=== PATIENT | male | born 1995 | race Hispanic/Latino ===

== ENCOUNTER → 2020-10-30 14:46 | Outpatient (CLI) | payer OTHER, SELFPAY ==
[2020-10-30] MEDS: COVID-19 VACC #2, MRNA(MOD) 100 MCG/0.5 ML VIAL IM (14:56)
== END ==
PROVIDERS: Visit Provider Internal Medicine
DX: Z23 Encounter for immunization (principal)
CPT/HCPCS: 0012A; 91301